=== PATIENT | female | born 1980 | race African-American/Black ===

== ENCOUNTER 2018-12-12 07:59 | Inpatient (IN) | payer SELFPAY ==
[~2018-12-12] VITALS: Ht 170.2 cm; Wt 147.0 kg
[2018-12-12] MEDS ORDERED: ONDANSETRON HCL INJ 2MG/ML 2ML 2 MG/ML VIAL IV STA (08:22)
[2018-12-12] MEDS ORDERED: SODIUM CHLORIDE 0.9% 1000ML 1,000 ML IV STA (08:22)
[2018-12-12] MEDS ORDERED: MORPHINE SULFATE 2 MG/ML SYR 1ML IV NR (08:30)
[2018-12-12] MEDS ORDERED: PANTOPRAZOLE 40 MG 10ML VIAL IV NR (08:30)
--- NOTE | 2018-12-12 09:13 | Diagnostic Imaging Report ---
EXAMINATION: CHEST SINGLE (PORTABLE) INDICATION: Shortness of breath COMPARISON: None FINDINGS: LINES/TUBES:None LUNGS:The lungs are well-inflated. No focal consolidation or pulmonary edema. PLEURA:No pleural effusion or pneumothorax. MEDIASTINUM:Mild cardiomegaly. BONES/SOFT TISSUES:No acute osseous injury. ABDOMEN:No free air under the diaphragm. IMPRESSION: No focal pneumonia or pulmonary edema. Mild cardiomegaly. Signed by: Anthony Montiel MD on 12/12/2018 9:09 AM
[2018-12-12 09:18] LABS: BASOPHILS % 0.8 % (0.0-1.0); EOSINOPHILS # (AUTO) 0.2 (0.0-0.4); EOSINOPHILS % 3.8 % (0.0-6.0); HEMATOCRIT 31.8 % (34.2-44.1); HEMOGLOBIN 9.5 g/dL (12.0-16.0); LYMPHOCYTES # (AUTO) 2.7 (1.0-3.2); LYMPHOCYTES % 56.6 % (18.0-39.1); MEAN CORPUSCULAR HEMOGLOBIN 25.5 pg (28-32); MEAN CORPUSCULAR HGB CONC 29.9 g/dL (31-35); MEAN CORPUSCULAR VOLUME 85.3 fL (81-99); MONOCYTES # (AUTO) 0.4 (0.2-0.8); MONOCYTES % 7.4 % (4.4-11.3); NEUTROPHILS # (AUTO) 1.5 (2.1-6.9); PLATELET COUNT 598 x10e3/uL (140-360); RED BLOOD COUNT 3.73 x10e6/uL (3.6-5.1); RED CELL DISTRIBUTION WIDTH 19.6 % (11.7-14.4)
[2018-12-12 09:26] LABS: PREGNANCY TEST, URINE NEGATIVE (NEGATIVE)
[2018-12-12] MEDS ORDERED: DIPHENHYDRAMINE HCL INJ 50 MG/ML VIAL IV NR (09:30)
[2018-12-12] MEDS ORDERED: SODIUM CHLORIDE 0.9% 1000ML 1,000 ML IV SCH (09:36)
[2018-12-12 09:39] LABS: ALANINE AMINOTRANSFERASE 10 IU/L (0-55); ALBUMIN 3.1 g/dL (3.5-5.0); ALBUMIN/GLOBULIN RATIO 0.7 (0.8-2.0); ALKALINE PHOSPHATASE 73 IU/L (40-150); ANION GAP 13.2 mmol/L (8-16); BLOOD UREA NITROGEN 11 mg/dL (7-26); BUN/CREATININE RATIO 16 (6-25); CALCIUM 9.2 mg/dL (8.4-10.2); CARBON DIOXIDE 25 mmol/L (22-29); CHLORIDE 107 mmol/L (98-107); CREATINE KINASE 65 IU/L (29-168); CREATININE, SERUM 0.69 mg/dL (0.57-1.11); EST GLOMERULAR FILTRATION RATE > 60 ML/MIN (60-); GLUCOSE 83 mg/dL (74-118); POTASSIUM 3.2 mmol/L (3.5-5.1); SODIUM 142 mmol/L (136-145)
[2018-12-12 09:41] LABS: CLARITY,URINE SL CLOUDY (CLEAR); COLOR,URINE YELLOW (YELLOW); LEUKOCYTE ESTERASE ,URINE NEGATIVE (NEGATIVE); NITRITE,URINE NEGATIVE (NEGATIVE)
[2018-12-12 09:42] LABS: BILIRUBIN,URINE NEGATIVE (NEGATIVE); KETONES,URINE NEGATIVE (NEGATIVE); PROTEIN,URINE DIPSTICK NEGATIVE (NEGATIVE); URINE UROBILINOGEN 0.2 mg/dL (0.2 - 1)
--- NOTE | 2018-12-12 09:42 | NUR ---
i SPOKE WITH DOCTORS MONICA AND Loni SALVADOR
[2018-12-12 09:43] LABS: BACTERIA,URINE FEW /HPF; EPITHELIAL CELLS,URINE FEW /LPF; MUCUS,URINE MODERATE (RARE); RBC,URINE 0-5 /HPF (0-5); WBC,URINE (MAN) 0-5 /HPF (0-5)
[2018-12-12] MEDS ORDERED: MORPHINE SULFATE 2 MG/ML SYR 1ML IV PRN (09:45)
[2018-12-12] MEDS ORDERED: ONDANSETRON HCL INJ 2MG/ML 2ML 2 MG/ML VIAL IV PRN (09:45)
[2018-12-12] MEDS ORDERED: POTASSIUM CHLORIDE 10MEQ/100ML 100 ML IV SCH (10:00)
[2018-12-12] MEDS ORDERED: DIPHENHYDRAMINE HCL INJ 50 MG/ML VIAL IV PRN (10:00)
--- OUTSIDE RECORDS SUMMARY | 2018-12-12 10:04 | XMS REPORT ---
Author Author [facility] Address Unknown Phone Unavailable Care Team Providers Care Funeral Location Manager Name Role Phone Erika TOLBERT Unavailable Unavailable Problems This patient has no known problems. Allergies, Adverse Reactions, Alerts This patient has no known allergies or adverse reactions. Medications This patient has no known medications. Results Test Description Test Time Test Comments Text Results Atomic Results Result Comments CHEST SINGLE (PORTABLE) 2018-12-12 09:07:00 [place] [address] Patient Name: JEAN TINSLEY MR #: [id number] : 1980 Age/Sex: 38/F Req #: [id number] Adm Physician: Ordered by: CRYSTAL TOLBERT MD Report #: [id number] Location: ER Room/Bed: Procedure: [id number] DX/CHEST SINGLE (PORTABLE) Exam Date: 12/12/18 Exam Time: 0853 REPORT STATUS: Signed EXAMINATION: CHEST SINGLE (PORTABLE) INDICAT ION: Shortness of breath COMPARISON: None FINDINGS: LINES/TUBES:None LUNGS:The lungs are well-inflated. No focal consolidation or pulmonary edema. PLEURA:No pleural effusion or pneumothorax. MEDIASTINUM:Mild cardiomegaly. BONES/SOFT TISSUES:No acute osseous injury. ABDOMEN:No free air under the diaphragm. IMPRESSION: No focal pneumonia or pulmonary edema. Mild cardiomegaly. Signed by: Ann-Marie Montiel MD on 12/12/2018 9:09 AM Dictated By: ANN-MARIE MONTIEL MD 8 Transcribed By: LORRIE on 12/12/18908 COPY TO: CRYSTAL TOLBERT MD
[2018-12-12 10:30] LABS: INR 0.88; PROTHROMBIN TIME 12.4 seconds (11.9-14.5)
[2018-12-12 10:31] LABS: PARTIAL THROMBOPLASTIN TIME 26.6 seconds (23.8-35.5)
--- NOTE | 2018-12-12 10:40 | NUR ---
CONSENT FOR PICC SIGNED AND PLACED INTO CHART
[2018-12-12 11:44] VITALS: BP 123/96
[2018-12-12 12:00] VITALS: BP 123/96
[2018-12-12] MEDS ORDERED: ELIQUIS PO (12:42)
[2018-12-12] MEDS ORDERED: CLONAZEPAM1 MG PO (12:42)
[2018-12-12 13:12] VITALS: BP 123/96
--- NOTE | 2018-12-12 13:31 | NUR ---
PATIENT ARRIVED ON THE UNIT AT 1133 PER STRETCHER FROM THE ER. PATIENT IN STABLE CONDITION WITH NO S/S OF RESPIRATORY DISTRESS. PATIENT C/O CHEST PAIN 8/10 WHEN TAKING A DEEP BREATH- WAITING FOR PICC LINE ACCESS. SKINS INTACT. TELEMETRY APPLIED. CALL LIGHT IS WITHIN REACH OF PATIENT, PATIENT INSTRUCTED TO CALL FOR ASSISTANCE NEEDED.
[2018-12-12 15:38] VITALS: BP 140/65
[2018-12-12] MEDS: MORPHINE SULFATE INJ 4 MG/ML INJ 1ML IV PRN ×2 (16:24→19:37)
--- NOTE | 2018-12-12 16:32 | Diagnostic Imaging Report ---
EXAMINATION: CHEST XRAY LINE PLACEMENT INDICATION: Line placement COMPARISON: Chest radiograph of 12/12/2018 FINDINGS: LINES/TUBES:Interval left PICC line placement terminating in the SVC just beyond the confluence of innominate veins. EKG leads overlie the chest. LUNGS:The lungs are well-inflated. No focal consolidation or pulmonary edema. PLEURA:No pleural effusion or pneumothorax. MEDIASTINUM:Cardiomediastinal silhouette is stably enlarged. BONES/SOFT TISSUES:No acute osseous injury. ABDOMEN:No free air under the diaphragm. IMPRESSION: New left PICC line terminates in the SVC just beyond the confluence of innominate veins. No focal pneumonia or pulmonary edema. Stable cardiomegaly. Signed by: Anthony Montiel MD on 12/12/2018 4:28 PM
--- NOTE | 2018-12-12 16:57 | NUR ---
PATIENT OFF THE UNIT TO NUCLEAR MED- IN STABLE CONDITION WITH NO S/S OF RESPIRATORY DISTRESS. TELEMETRY APPLIED.
[2018-12-12 17:01] LABS: CREATINE KINASE 45 IU/L (29-168)
[2018-12-12] MEDS: SODIUM CHLORIDE 0.9% 1000ML 1,000 ML IV SCH (17:12)
[2018-12-12] MEDS: PROMETHAZINE 12.5MG/ NACL 0.9% 12.5 MG/50 ML BAG IV PRN ×2 (17:24→23:45)
[2018-12-12] MEDS: POTASSIUM CHLORIDE 10MEQ/100ML 100 ML IV SCH ×3 (17:43→22:00)
[2018-12-12] MEDS: DIPHENHYDRAMINE HCL INJ 50 MG/ML VIAL IV PRN (18:17)
--- NOTE | 2018-12-12 18:20 | NUR ---
PATIENT AWARE OF NEED FOR STOOL SAMPLE- COLLECTION HAT PLACED ON TOILET.
--- NOTE | 2018-12-12 18:43 | NUR ---
RECEIVED CALL BACK FROM DR. Davidson POSADAS - INFORMED OF CONSULT. DR. POSADAS STATED TO KEEP THE PATIENT NPO PAST MIDNIGHT.
--- NOTE | 2018-12-12 19:15 | NUR ---
patient received awake, alert, lying quietly in bed. vss. patient requesting pain medication but wants to take a walk first. ivf infusing without difficulty. pm assessment complete. patient instructed to call for assistance when needed.
--- NOTE | 2018-12-12 19:30 | NUR ---
PATIENT IN STABLE CONDITION WITH NO S/S OF RESPIRATORY DISTRESS. IV FLUIDS INFUSING. TELEMETRY APPLIED. CALL LIGHT IS WITHIN REACH, PATIENT INSTRUCTED TO CALL FOR ASSISTANCE NEEDED. BEDSIDE REPORT GIVEN TO ONCOMING NURSE.
--- NOTE | 2018-12-12 19:37 | NUR ---
patient medicated with morphine 4mg ivp for c/o chest pain 11/16 at this time.
[2018-12-12 20:00] VITALS: BP_SYST 106; BP_SYST 114; BP_DIAS 54; BP_DIAS 55
[2018-12-12] MEDS: PANTOPRAZOLE 40 MG 10ML VIAL IV SCH (20:47)
[2018-12-12] MEDS: HYDROMORPHONE 1MG/1ML INJ IV PRN (23:45)
--- NOTE | 2018-12-12 23:45 | NUR ---
Patient medicated with dilaudid 0.5mg ivp for c/o chest pain 11/16 and phenergan 12.5mg iv for c/o nausea. 3rd set of cardiac markers drawn from left picc line at this time.
[2018-12-13] VITALS (8 sets, daily range): BP systolic 113–130; BP diastolic 55–65
--- NOTE | 2018-12-13 00:15 | NUR ---
patient requesting more pain medication. patient very angry because pain medication was changed. call placed to at this time. no new orders noted. said, " I do not want to be called about this patient again. That's all shes getting. "
[2018-12-13 00:17] LABS: CREATINE KINASE 43 IU/L (29-168)
[2018-12-13] MEDS: POTASSIUM CHLORIDE 10MEQ/100ML 100 ML IV SCH (01:00)
[2018-12-13] MEDS: DIPHENHYDRAMINE HCL INJ 50 MG/ML VIAL IV PRN ×3 (01:30→14:12)
--- NOTE | 2018-12-13 02:37 | History and Physical ---
CHIEF COMPLAINT: Chest pain. HISTORY OF PRESENT ILLNESS: This is a 38-year-old female, morbidly obese, who recently moved from [place] to [place] and which she reports that she has a history of protein C deficiency, reportedly was on Eliquis, but has not taken it for the last 3 months due to some insurance issues. Also has a history of medical noncompliance, comes then to the hospital with multiple complaints of chest pain, coffee-grounds emesis, and reports having a history of protein C deficiency, now on anticoagulation for several months now. The patient also endorses she has a history of a venous thrombosis, clot in her brain in which she has had craniotomy more than two years ago. After that she was told that she can continue her anticoagulation. She also reports that she was taking warfarin and was seeing transmission and coordination engineer in [place] and she was taken up to 45 mg of warfarin on a daily basis, but she was still not therapeutic at that time. During that time, her transmission and coordination engineer decided to discontinue the warfarin and start her on Eliquis. The patient reports that she took Eliquis for one month and then stopped taking it due to some insurance issues and cost. She does endorse that at some point she was on Lovenox due to her protein C deficiency. The patient was seen and evaluated at bedside on the medical floor. She is currently stating that she has chest pain on examination. Her cardiac enzyme was found to be negative x1. Cardiology was consulted. She endorses that her chest pain is substernal as well with no radiation. She reports some shortness of breath. Denies any abdominal pain. Reports having some nausea and vomiting with coffee-grounds emesis that began hurting this morning. The patient was seen and evaluated at bedside on the medical floor, currently doing well with no issues. REVIEW OF SYSTEMS: Pertinent positives: Chest pain and shortness of breath. Pertinent negatives: Denies any denies any palpitation, nausea, vomiting, diarrhea, dysuria, hematuria, frequency, urgency, lightheadedness, dizziness, abdominal pain, cough, congestion, fever, or any other complaints. The rest of 14 review of systems are reviewed with the patient and are negative. ALLERGIES: IODINE ORAL AND IV, KETOROLAC, ZOFRAN, AND STRAWBERRIES. HOME MEDICATIONS: She takes clonazepam 1 mg p.o. b.i.d. and Eliquis 5 mg p.o. b.i.d. PAST MEDICAL HISTORY: Protein C deficiency, history of craniotomy in the past due to venous thromboses, clot 2 years ago, anxiety, morbid obesity, medical noncompliance, and history of DVT. PAST SURGICAL HISTORY: Reports having craniotomy about 2 years ago due to venous thrombosis, clot. FAMILY HISTORY: Hypertension and diabetes. SOCIAL HISTORY: No drugs, no alcohol, does not smoke. Good social support. PHYSICAL EXAMINATION: VITAL SIGNS: Temperature 97, pulse 65, respiratory rate is 18, blood pressure 140/65, and pulse ox 99% on room air. GENERAL: Not in acute distress. Alert and oriented x3. Cooperative on examination. HEENT: Head is normocephalic and atraumatic. Eyes; pupils are equal, round, and reactive to light bilaterally. Extraocular Movements intact bilaterally. Throat, no evidence of erythema or exudates in the posterior pharynx. Has poor dentition. NECK: Supple. Good range of motion. PULMONARY: Clear to auscultation bilaterally. No wheezing, rales, or rhonchi. No crackles appreciated. CARDIOVASCULAR: Positive S1 and S2. No murmurs, rubs, or gallops. GI: Abdomen is soft, nondistended, and nontender to palpation. Bowel sounds present. MUSCULOSKELETAL: Strength is 5/5 throughout. No evidence of any muscle deficits on examination. No weakness appreciated. NEUROLOGIC: Cranial nerves 2 through 12 grossly intact. No evidence of any neurological deficits on exam. SKIN: Intact. Warm to touch. Good cap Refill. PSYCHIATRIC: Normal affect. EXTREMITIES: No edema good range of motion throughout. LABORATORY DATA: White count 4.7, hemoglobin 9.5, hematocrit 32, and platelets of 598. Coagulation; PT 12, INR 0.88, PTT 26.6. D-dimer was 629. Urinalysis is negative. Chemistry; sodium 142, potassium 3.2, chloride 107, bicarb is 25, anion gap of 13, BUN is 11, creatinine is 0.69, glucose 83, and calcium 9.2. LFTs within normal range. Troponins were all negative. Total protein 7.3, albumin is 3.1. Microbiology; urine cultures pending. IMAGING STUDIES: Chest x-ray, no focal pneumonia or pulmonary edema. Mild cardiomegaly. PICC line was placed. IMPRESSION: 1. Chest pain, rule out acute coronary syndrome, likely atypical in nature. 2. Nausea and vomiting with coffee-grounds emesis. 3. History of protein C deficiency with deep vein thrombosis and clots. Noncompliant with her anticoagulation for more than 3 months now. 4. Anxiety. 5. Morbid obesity. 6. Electrolyte abnormalities. PLAN: At this time, we will trend troponins. Continue cardioprotective medications, but we will have to hold on aspirin due to the fact that she reportedly has coffee ground emesis. Cardiology was consulted. GI was consulted for the coffee-grounds emesis. We will put on Protonix IV b.i.d. In terms of a protein C deficiency, Hematology was consulted for further management and care. Starting anticoagulation at this time must rule out the GI bleed first. Resume same home medications. Diet and exercise discussed with patient. Replace potassium. Get a.m. labs. Otherwise, the patient also has medical noncompliance. I am also concerned as the patient is demanding IV Benadryl, IV Phenergan and she is now almost requesting some IV Dilaudid. The patient states that the morphine does not work. There could be a sense of this patient is likely malingering for pain medicines and other sedative medications. We will continue to monitor very closely and will be discussed case with nursing staff. MD YENNY Galeano/STARLAL /[id number]
[2018-12-13] MEDS: HYDROMORPHONE 1MG/1ML INJ IV PRN ×5 (03:40→20:30)
--- NOTE | 2018-12-13 03:40 | NUR ---
patient medicated for pain per orders per patients request at this time.
[2018-12-13 05:27] LABS: HEMATOCRIT 27.3 % (34.2-44.1); HEMOGLOBIN 8.1 g/dL (12.0-16.0); MEAN CORPUSCULAR HEMOGLOBIN 25.5 pg (28-32); MEAN CORPUSCULAR HGB CONC 29.7 g/dL (31-35); MEAN CORPUSCULAR VOLUME 85.8 fL (81-99); PLATELET COUNT 421 x10e3/uL (140-360); RED BLOOD COUNT 3.18 x10e6/uL (3.6-5.1); RED CELL DISTRIBUTION WIDTH 19.5 % (11.7-14.4)
[2018-12-13 05:51] LABS: ALANINE AMINOTRANSFERASE 7 IU/L (0-55); ALBUMIN 2.5 g/dL (3.5-5.0); ALBUMIN/GLOBULIN RATIO 0.8 (0.8-2.0); ALKALINE PHOSPHATASE 60 IU/L (40-150); ANION GAP 10.7 mmol/L (8-16); BLOOD UREA NITROGEN 9 mg/dL (7-26); BUN/CREATININE RATIO 14 (6-25); CALCIUM 8.2 mg/dL (8.4-10.2); CARBON DIOXIDE 24 mmol/L (22-29); CHLORIDE 109 mmol/L (98-107); CREATININE, SERUM 0.64 mg/dL (0.57-1.11); EST GLOMERULAR FILTRATION RATE > 60 ML/MIN (60-); GLUCOSE 85 mg/dL (74-118); POTASSIUM 3.7 mmol/L (3.5-5.1); SODIUM 140 mmol/L (136-145)
[2018-12-13 06:04] LABS: FERRITIN 6.46 ng/mL (4.63-204.00)
[2018-12-13 06:22] LABS: FOLATE 9.5 ng/mL (7.0-15.4)
[2018-12-13 06:44] LABS: CREATINE KINASE 40 IU/L (29-168)
--- NOTE | 2018-12-13 07:05 | NUR ---
PATIENT AWAKE AND IN STABLE CONDITION WITH NO S/S OF RESPIRATORY DISTRESS. PATIENT C/O OF CHEST PAIN BUT PAIN MEDICATION IS NOT AVAILABLE AT THIS TIME. IV FLUIDS INFUSING. TELEMETRY APPLIED. CALL LIGHT IS WITHIN REACH, PATIENT INSTRUCTED TO CALL FOR ASSISTANCE NEEDED.
[2018-12-13] MEDS: PANTOPRAZOLE 40 MG 10ML VIAL IV SCH ×2 (08:03→21:26)
[2018-12-13] MEDS: PROMETHAZINE 12.5MG/ NACL 0.9% 12.5 MG/50 ML BAG IV PRN (09:01)
--- NOTE | 2018-12-13 13:30 | Progress Note ---
DATE: 12/13/2018 Medicine Progress Note SUBJECTIVE: The patient is demanding significant amount of pain medication. She fired the initial nurse. She reports that the nurse was not given her any of the pain medications. Last night, the patient was also accusing the nurse of not given her any of the pain medications. She is on IV Dilaudid low dose. I have talked to her this morning about her pain situation and about her pain medications. At this time, the medications will stay the same with no changes. PHYSICAL EXAMINATION: VITAL SIGNS: She is afebrile, normotensive, respiratory rate is good. GENERAL: Not in acute distress, alert and oriented x3. Cooperative on examination. HEENT: Head is normocephalic and atraumatic. Eyes; Pupils are equal, round, and reactive to light bilaterally. Extraocular movements are intact bilaterally. NECK: Supple. Good range of motion. Throat; no evidence of erythema or exudate in posterior pharynx. Has poor dentition. PULMONARY: Clear to auscultation bilaterally. No wheezing, rales, or rhonchi. No crackles appreciated. CARDIOVASCULAR: Positive S1, S2. No murmurs, rubs, or gallops appreciated. ABDOMEN: Soft, nondistended, nontender to palpation. Bowel sounds present. MUSCULOSKELETAL: Strength is 5/5 throughout. No evidence of any neurological deficits on examination. SKIN: Intact. Warm to touch. Good cap refill. PSYCHIATRIC: Normal affect and mood. EXTREMITIES: No edema. Good range of motion throughout. LABORATORY DATA: Labs show white count 4.5, hemoglobin did drop to 8.1, hematocrit 27.3, and platelets of 421. Chemistries reviewed and stable. Urinalysis negative. Microbiology; urine cultures were negative. IMAGING STUDIES: None. IMPRESSION: 1. Chest pain, rule out acute coronary syndrome, likely to be atypical in nature. 2. Nausea and vomiting with coffee-grounds emesis. 3. History of protein C deficiency with deep vein thrombosis in the past and clot. Noncompliant with anticoagulation for last three months now. 4. Anxiety. 5. Morbid obesity. 6. Electrolyte abnormalities. PLAN: At this time, the cardiac enzymes were found to be negative. A 2D echo is pending. Cardiac evaluation is pending as well. In relation to her V/Q scan, which is pending today and Hematology is following. We will defer anticoagulation to Hematology. In terms of her nausea, vomiting, and questionable coffee-grounds emesis, there was some report of nausea and vomiting this morning. I have to wait for GI to come and evaluate her. They have been consulted as well. We are going to resume same home medications for now. In relation to her pain control, she will continue with the same pain regimen with no changes at this time. The patient is walking, ambulating, going downstairs and even going outside and the patient does not seem to be in any significant pain according to the staff and even during my evaluation. At this time, medications stayed the same. I have discussed this with the nursing staff and I have also discussed this with the patient. She verbalized understanding the plan of care. We will await for lending consultant's recommendations on this case. MD YENNY Galeano/SYLVAIN /[id number]
--- NOTE | 2018-12-13 17:15 | Consultation ---
DATE OF CONSULTATION: 12/13/2018 Cardiac Consultation REASON FOR CONSULTATION: Chest pain, shortness of breath. HISTORY: A 38-year-old lady who is known with morbid obesity. She just moved from [place] to [place] to stay with her mother. She does have chronic history of protein C deficiency. She was on Eliquis, but she is not taking it for the last 3 to 4 months because of insurance issue. She takes some anxiety medication. The patient came to this institution with nausea, vomiting, coffee-grounds emesis. With that, she had chest pressure, chest tightness, and more of a left lower sternum and epigastric discomfort. Her EKG showed T-wave changes. Cardiac consultation is obtained. The patient does have chronic problem with protein C deficiency and venous thrombosis. She said she had craniotomy more than two years ago for that. She had repeated pulmonary emboli. She is followed by natural gas plant technician in [place] and she was in usual dose of warfarin of 45 mg before moving to [facility]. The patient admitted to this institution with the above complaint. Serial cardiac enzymes are normal. The patient is still having nausea. She is not feeling well. REVIEW OF SYSTEMS: Done to all systems, will be summarized for clarity. GENERAL: No fever, no chills. No weight loss. HEENT: No vision problem. No hearing problem. PULMONARY: Shortness of breath. Easy fatigability. Vague chest pain. CARDIAC: As per acute illness. GI: Nausea, vomiting, and coffee-ground material. : Incontinence. MUSCULOSKELETAL: Aches and pain on several joints. NEUROLOGICAL: No seizure activity. Others, the patient does have sleep apnea. SOCIAL HISTORY: She is single, never . She is nonsmoker and non-alcohol drinker. HOME MEDICATIONS: Taking only clonazepam and she is out of Eliquis for the last few months. ALLERGIES: IODINE ALLERGIC. PAST MEDICAL HISTORY: 1. Cholecystectomy. 2. Protein C deficiency. 3. Craniotomy. 4. Multiple PE. 5. Morbid obesity. 6. Degenerative joint disease. FAMILY HISTORY: Positive for hypertension, diabetes mellitus. No premature coronary artery disease. PHYSICAL EXAMINATION: VITAL SIGNS: Morbidly obese lady. Height of 5 feet 7 inches, weight of 124 pounds, blood pressure 110/60, heart rate of 70, respiratory rate of 18. HEENT: Pupils are reactive. NECK: No elevation of jugular venous pulsation. CHEST: Decreased air entry in bases. HEART: Unable to palpate apex. Distant heart sound. ABDOMEN: Soft. EXTREMITIES: No cyanosis, no clubbing, no edema. NEUROLOGIC: Nonfocal. LABORATORY DATA: Hemoglobin of 8.1, hematocrit 27%, platelet count 421,000, white blood cell count of 4.6, BUN of 9, creatinine of 0.64. Sodium of 140, potassium 3.7. EKG from ER showing T-wave changes and tachycardia. Today, EKG showing normal sinus rhythm. Chest x-ray by report, no abnormality and PICC line was noted. IMPRESSION AND PLAN: 1. Nausea and vomiting with coffee-grounds emesis. 2. Chest pain seems to be very atypical for heart disease. 3. Poor protein C deficiency and history of deep venous thrombosis and clot, noncompliant. 4. Morbid obesity. 5. Electrolyte abnormality. Cardiac bartholomew, already the patient had serial cardiac enzymes are normal. Our approach for her will be medical therapy. We will check an echocardiogram. We will keep the patient on telemetry. The patient to be seen by Hematology. The patient to be followed with you. MD MICHAEL Scott/SYLVAIN /[id number]
--- NOTE | 2018-12-13 17:29 | Diagnostic Imaging Report ---
Ventilation/perfusion lung scan Clinical Information: Chest pain; history of CVA Comparison: Chest radiograph 12/12/2018 Discussion: Xenon-133 gas 10 mCi was administered via inhalation. Dynamic images of the lungs in the posterior projection were obtained through single breath, equilibrium, and washout phases. Distribution of tracer activity is mildly irregular throughout the lungs. There are no segmental ventilatory defects. Washout of tracer is minimally delayed with no air trapping. Perfusion images of the lungs were obtained in multiple projections following intravenous administration of approximately 6 mCi of Tc-99m MAA. Distribution of tracer is irregular throughout the lungs. The contours of the lungs are well demarcated. There are no segmental perfusion defects of any size. The cardiomediastinal silhouette is mildly enlarged. Impression: 1. Scan findings represent a VERY LOW probability for acute pulmonary embolic disease based on the PIOPED II criteria. 2. Scan evidence of mild obstructive lung disease. 3. Mildly enlarged cardiac silhouette. Signed by: Dr. Kathy Swift M.D. on 12/13/2018 5:26 PM
[2018-12-13] MEDS ORDERED: DIPHENHYDRAMINE HCL INJ 25 MG in SODIUM CHLORIDE 0.9% 50ML 50 ML IV ONE (18:30)
[2018-12-13] MEDS ORDERED: FAMOTIDINE INJ 20 MG in SODIUM CHLORIDE 0.9% 50ML 50 ML IV ONE (18:30)
[2018-12-13] MEDS ORDERED: DEXAMETHASONE PHOS 10MG INJ 20 MG in SODIUM CHLORIDE 0.9% 50ML 50 ML IV ONE (18:30)
--- NOTE | 2018-12-13 19:05 | NUR ---
rounded with county nurse nurse, patient aware of change and in no distress. call knutson within reach and bed in lowest position.
--- NOTE | 2018-12-13 19:51 | NUR ---
RECEIVED PT SITTING ON THE BED RESPIRATIONS ARE EVEN AND UNLABORED .C/O PAIN .CALL LIGHT WITH IN REACH .CONTINUE TO MONITOR
[2018-12-13] MEDS: CYANOCOBALAMIN INJ 1,000 MCG/ML VIAL IM SCH ×2 (20:00→21:25)
[2018-12-13] MEDS ORDERED: IRON DEXTRAN INJ 50 MG in SODIUM CHLORIDE 0.9% 100 ML IV ONE (20:00)
[2018-12-13 20:09] LABS: BASOPHILS % 0.4 % (0.0-1.0); EOSINOPHILS # (AUTO) 0.5 (0.0-0.4); EOSINOPHILS % 9.1 % (0.0-6.0); HEMATOCRIT 27.1 % (34.2-44.1); HEMOGLOBIN 8.1 g/dL (12.0-16.0); LYMPHOCYTES # (AUTO) 2.4 (1.0-3.2); LYMPHOCYTES % 48.9 % (18.0-39.1); MEAN CORPUSCULAR HEMOGLOBIN 25.6 pg (28-32); MEAN CORPUSCULAR HGB CONC 29.9 g/dL (31-35); MEAN CORPUSCULAR VOLUME 85.8 fL (81-99); MONOCYTES # (AUTO) 0.5 (0.2-0.8); MONOCYTES % 9.1 % (4.4-11.3); NEUTROPHILS # (AUTO) 1.6 (2.1-6.9); NEUTROPHILS % 32.3 % (38.7-80.0); PLATELET COUNT 462 x10e3/uL (140-360); RED BLOOD COUNT 3.16 x10e6/uL (3.6-5.1); RED CELL DISTRIBUTION WIDTH 19.5 % (11.7-14.4)
[2018-12-13] MEDS ORDERED: IRON DEXTRAN INJ 500 MG in SODIUM CHLORIDE 0.9% 500ML 500 ML IV ONE (22:00)
[2018-12-14] VITALS: BP 107/64
[2018-12-14] MEDS: HYDROMORPHONE 1MG/1ML INJ IV PRN ×2 (00:40→04:40)
[2018-12-14] MEDS ORDERED: CYANOCOBALAMIN INJ 1,000 MCG/ML VIAL IM STA (00:42)
[2018-12-14 04:00] VITALS: BP 130/79
[2018-12-14] MEDS: PROMETHAZINE 12.5MG/ NACL 0.9% 12.5 MG/50 ML BAG IV PRN (04:40)
[2018-12-14] MEDS: SODIUM CHLORIDE 0.9% 1000ML 1,000 ML IV SCH (05:17)
--- NOTE | 2018-12-14 06:35 | NUR ---
PT C/O PAIN ,NAUSE MEDICATED WITH DILAUDID ,BENADRYL AND PHENERGAN . GIVEN IRON DEXTRAN NO REACTION NOTED EGD ORDERED BY DR SALVADOR .CONSENT SIGN AND PT IS NPO CALL LIGHT WITH IN REACH
--- NOTE | 2018-12-14 07:09 | NUR ---
BEDSIDE REPORT GIVEN TO THE ONCOMING NURSE
[2018-12-14 08:15] VITALS: BP 131/72
[2018-12-14] MEDS ORDERED: CYANOCOBALAMIN INJ 1,000 MCG/ML VIAL IM SCH ×2 (09:00)
--- NOTE | 2018-12-14 09:00 | NUR ---
PT C/O PAIN AND ITCHING MEDICATED.EXPLAINED TO PT PROCEDURE WILL BE DONE THIS AFTERNOON,AND NOTHING TO EAT OR DRINK UNTIL AFTER PROCEDURE,ACKNOWLEDGE UNDERSTANDING.
--- NOTE | 2018-12-14 09:30 | NUR ---
PT BACK IN ROOM ,KITCHEN MANAGE CAME TO DESK STATED PT ORDERED BREAKFAST AND ATE IT IN [place],WENT TO PT ROOM PT DENIED EATING,AND STATED I NEED A SPRITE AND CRACKERS TO SETTLE MY STOMACH,AGAIN EXPLAINED TO PT SHE COULD NOT HAVE ANYTHING TO EAT OR DRINK UNTIL AFTER PROCEDURE.AGAIN STATED SHE NEEDED SPRITE TO DRINK.DR ANDERSON NOTIFIED,
--- NOTE | 2018-12-14 09:45 | NUR ---
[facility]
--- NOTE | 2018-12-14 09:50 | NUR ---
PT REFUSED TO HAVE LAB DRAWN ,STATED IF THEY WERE NOT GOING TO DO ANYTHING SHE MIGHT WELL GO HOME,PAGED DR ANDERSON
--- NOTE | 2018-12-14 10:00 | NUR ---
SPOKE WITH DR ANDERSON NOTIFIED PT GOING AMA.ACKNOWLEDGED UNDERSTANDING
--- NOTE | 2018-12-14 10:05 | NUR ---
patient left hospital AMA and refused to sign the form. form signed by myself and another nurse that witnessed her refusal. prior to departure, PICC line removed by me and pressure held x5 min then dressing applied. no bleeding at time of discharge.
--- NOTE | 2018-12-15 01:37 | Discharge Summary ---
FINAL DISCHARGE DIAGNOSES: 1. The patient left against medical advice. 2. Chest pain, likely atypical in nature. 3. Nausea and vomiting with coffee-ground emesis. 4. History of protein C deficiency with deep venous thrombosis in the past, noncompliant with anticoagulation. 5. Anxiety. 6. Morbid obesity. 7. Electrolyte abnormalities. 8. Left against medical advice. CONSULTANTS: Cardiology, Hematology, GI. VITAL SIGNS: Temperature 98.1, pulse 72, respiratory rate 17, blood pressure 131/72, pulse ox 99% on room air. LAB FINDINGS: Show white count 4.9, hemoglobin 8.1, hematocrit is . Chemistry; sodium 140, potassium 3.7, chloride 109, bicarb 25, anion gap of 10, BUN 9, creatinine 0.4, glucose 85, calcium . Urinalysis negative. Microbiology shows mixed redd. IMAGING STUDIES: Chest x-ray, no focal pneumonia or pulmonary edema. V/Q scan shows very low probability for pulmonary embolism. HOSPITAL COURSE: This is a 38-year-old female, who came into the ED with multiple complaints of note chest pain, coffee-grounds emesis, and also reports not taking any of her anticoagulation for a significant number of months due to protein C deficiency. In relation to her chest pain, Cardiology was consulted. EKG showed no . Cardiac enzymes found to be negative. In relation to her nausea, vomiting, and coffee-grounds emesis, GI was consulted, scheduled for EGD today, but the patient ate and refused to get the EGD performed. The patient was requesting IV pain medications around the clock since the patient was malingering for underlying pain medications. Hematology was consulted for the concern for underlying cultures. The patient wanted to get the EGD first before starting any anticoagulation. On 12/14/2018, the patient was scheduled to have EGD, and instead of the patient going to procedure, she decided to go downstairs to the cafeteria and eat some breakfast. Several staff members witnessed her eating. She reports that she did not eat. The patient was assisted on more and more pain medications despite there are no clinical obvious findings of any kind of pain. At this time, the patient left against medical advice. Charge nurse and nurse were present throughout the entire time. The patient left against medical advice on 12/14/2018, and the patient left against medical advice. DISPOSITION: Left AMA. CONDITION: Left AMA. In the event of any worsening symptoms, the patient advised to come back to the ED for further evaluation. Discharge summary took greater than 35 minutes. MD YENNY Galeano/SYLVAIN /[id number]
== END 2018-12-14 10:01 | disposition left against medical advice (07) | DRG 313 ==
LOC: ER 07:59 → ERHOLD 09:59 → MED/SURG3 11:35
PROVIDERS: ADMIT Internal Medicine; ATTEND Internal Medicine
PROC: 02HV33Z Insertion of Infusion Device into Superior Vena Cava, Percutaneous Approach (ICD-10-PCS; principal; 2018-12-12)
DX: R07.89 Other chest pain (principal); D68.59 Other primary thrombophilia; Z68.43 Body mass index [BMI] 50.0-59.9, adult; R11.2 Nausea with vomiting, unspecified; Z86.718 Personal history of other venous thrombosis and embolism; Z79.01 Long term (current) use of anticoagulants; E66.01 Morbid (severe) obesity due to excess calories; E87.8 Other disorders of electrolyte and fluid balance, not elsewhere classified; Z53.21 Procedure and treatment not carried out due to patient leaving prior to being seen by health care provider; F41.9 Anxiety disorder, unspecified; M19.90 Unspecified osteoarthritis, unspecified site; Z90.49 Acquired absence of other specified parts of digestive tract; Z86.711 Personal history of pulmonary embolism; G47.30 Sleep apnea, unspecified; D50.9 Iron deficiency anemia, unspecified; D51.9 Vitamin B12 deficiency anemia, unspecified; Z87.11 Personal history of peptic ulcer disease
CPT/HCPCS: 36415; 36569; 71045; 78582; 80053; 81001; 81025; 82550; 82553; 82607; 82728; 82746; 83540; 84466; 84484; 85007; 85025; 85027; 85045; 85379; 85610; 85730; 86850; 86900; 86920; 87086; 93005; 93306; 99284; A9540; A9558; J1100; J1170; J1200; J1750; J2270; J2405; J2550; J3420; J3480; J7030; J7040; J7050